=== PATIENT | male | born 1985 | race Two or more races ===

== ENCOUNTER 2021-03-22 03:34 | Emergency (ER) | payer SELFPAY ==
[~2021-03-22] VITALS: Ht 177.8 cm; Wt 88.0 kg
--- NOTE | 2021-03-22 03:46 | NUR ---
PT AAOX4. BIBRA 38 FROM LAUNDROMAT C/O SEIZURE. PER RA PT WAS POSTICTAL UPON ARRIAVAL. PLACED IN BED 9 ON UPTWIST SPINNER AND PULSE OX. SEIZURE PRECAUTIONS INITIATED. ER MD AT BEDSIDE FOR EVAL.
[2021-03-22 03:52] LABS: BASOPHILS % (AUTO) 0.3 % (0.0-2.0); EOSINOPHILS % (AUTO) 1.5 % (0.0-6.0); HEMATOCRIT 41 % (39-51); HEMOGLOBIN 13.6 g/dL (13.5-17.5); LYMPHOCYTES # (AUTO) 5.1 K/uL (0.8-4.8); LYMPHOCYTES % (AUTO) 50.2 % (20.0-44.0); MEAN CORPUSCULAR HGB CONC 33 g/dl (31.0-36.0); MEAN CORPUSCULAR VOLUME 93 fL (80-96); MONOCYTES % (AUTO) 9.6 % (2.0-12.0); NEUTROPHILS # (AUTO) 3.9 K/uL (1.8-8.9); NEUTROPHILS % (AUTO) 38.4 % (43.0-81.0); PLATELET COUNT (AUTO) 261 K/uL (150-450); RED BLOOD CELL COUNT(AUTO) 4.41 MIL/uL (4.5-6.0); WHITE BLOOD COUNT (AUTO) 10.1 K/uL (4.3-11.0)
[2021-03-22 03:59] LABS: CALCIUM, SERUM 8.8 mg/dL (8.5-10.1); CREATININE 1.1 mg/dL (0.6-1.3); POTASSIUM 3.7 mmol/L (3.5-5.1)
--- NOTE | 2021-03-22 04:13 | NUR ---
PATIENT RETURNED FROM CT
[2021-03-22 05:17] VITALS: BP 128/74
--- NOTE | 2021-03-22 05:17 | NUR ---
Patient discharged to home in stable condition. Written and verbal after care instructions given. Patient verbalizes understanding of instruction.
== END 2021-03-22 05:18 | disposition home or self-care (01) ==
LOC: ER 03:36
DX: R56.9 Unspecified convulsions (principal)
CPT/HCPCS: 36415; 70450-TC; 80048-TC; 85025-TC